=== PATIENT | female | born 1975 | race Caucasian/White ===

== ENCOUNTER 2023-11-04 07:51 | Day surgery (SDC) | payer MEDICAID ==
[~2023-11-04] VITALS: Ht 162.6 cm; Wt 103.1 kg
[2023-11-04 09:08] LABS: HCG,QUAL RESULT NEGATIVE (NEGATIVE)
[2023-11-04 09:19] VITALS: O2SAT 100
[2023-11-04] MEDS ORDERED: MIDAZOLAM HCL 5 MG/5 ML VIAL ONE (09:52)
[2023-11-04] MEDS ORDERED: MEPERIDINE 100 MG INJ. 100 MG/ML VIAL ONE (09:52)
[2023-11-04 14:44] VITALS: BP_SYST 116; PULSE 90; RESP 22
== END 2023-11-04 11:26 | disposition home or self-care (01) ==
LOC: SDS 07:51 → SMU 07:53 → SDS 11:26
PROVIDERS: ATTEND Internal Medicine Gastroenterology
DX: Z12.11 Encounter for screening for malignant neoplasm of colon (principal); D12.8 Benign neoplasm of rectum; D12.2 Benign neoplasm of ascending colon; K57.30 Diverticulosis of large intestine without perforation or abscess without bleeding; K64.8 Other hemorrhoids; I10 Essential (primary) hypertension; F41.9 Anxiety disorder, unspecified; E66.9 Obesity, unspecified; G43.909 Migraine, unspecified, not intractable, without status migrainosus; Z79.899 Other long term (current) drug therapy; Z68.39 Body mass index [BMI] 39.0-39.9, adult
CPT/HCPCS: 45380; 99152; 84703; 45385; 88305; G0378; J2250; J2175